=== PATIENT | female | born 1975 | race Caucasian/White ===

== ENCOUNTER → 2020-10-28 08:47 | Outpatient (BNVA) | payer OTHER, SELFPAY | PROVIDERS: PCP Internal Medicine; Visit Provider Internal Medicine Endocrinology, Diabetes & Metabolism ==

== ENCOUNTER 2020-11-06 10:07 | Outpatient (REF) | payer OTHER, SELFPAY ==
[2020-11-06 10:57] LABS: Estimated Average Glucose 126 mg/dL
[2020-11-06 11:06] LABS: Cholesterol 162 mg/dL; Glucose Fasting 101 mg/dL (60-99); HDL Cholesterol 39 mg/dL; LDL Cholesterol Calculated 102 mg/dl; Triglycerides 108 mg/dL
[2020-11-06 11:07] LABS: Creatinine Urine 94.43 mg/dL; Microalbum/Creatinine Ratio Ur 11.6 ug/mg cr
[2020-11-06 11:29] LABS: Free T4 (Free Thyroxine) 0.87 ng/dL (0.71-1.85); Thyroid Stimulating Hormone 2.11 uIU/mL (0.32-4.0); Vitamin D 25-OH Total 36.9 ng/mL (>30)
[2020-11-07 04:37] LABS: LDL Cholesterol Direct 108 mg/dL (<100); Triiodothyronine T3 Total 118 ng/dL (76-181)
== END 2020-11-06 10:08 | disposition home or self-care (01) ==
LOC: HO.LAB 10:07
PROVIDERS: PCP Internal Medicine; Visit Provider Internal Medicine Endocrinology, Diabetes & Metabolism
DX: E05.00 Thyrotoxicosis with diffuse goiter without thyrotoxic crisis or storm (principal); R73.03 Prediabetes; E55.9 Vitamin D deficiency, unspecified
CPT/HCPCS: 36415; 80061; 82043; 82306; 82947; 83036; 83721; 84439; 84443; 84480

== ENCOUNTER → 2020-12-02 09:57 | Outpatient (BNVA) | payer OTHER, SELFPAY | PROVIDERS: PCP Internal Medicine; Visit Provider Dietitian, Registered ==

== ENCOUNTER 2021-01-06 10:00 | Outpatient (REF) | payer OTHER, SELFPAY ==
--- NOTE | ~2021-01-06 | MM_ITS ---
EXAMINATION: MM SCREENING DIGITAL BREAST TOMOSYNTHESIS, BILATERAL CLINICAL INFORMATION: Screening. Asymptomatic. The lifetime risk of breast cancer based on the Tyrer-Cuzick Model is 9%. COMPARISON: Mammography: 10/18/2019, 10/12/2018, 09/15/2017 TECHNIQUE: Digital breast tomosynthesis is performed in both the craniocaudal and mediolateral oblique views along with computer-aided detection (CAD). Synthesized 2D images are generated from the tomosynthesis. FINDINGS: There are scattered areas of fibroglandular density (ACR BI-RADS breast composition Category b). There are no significant masses, abnormal calcifications, or other abnormalities. Parenchymal pattern is similar to prior exams. MM/MM tomosynthesis screening BI IMPRESSION: No mammographic evidence of malignancy. ASSESSMENT: BI-RADS 1: Negative RECOMMENDATION: Routine annual mammography screening. This patient's information was entered into a reminder system with a target due date for their next mammogram.
== END 2021-01-06 10:01 | disposition home or self-care (01) ==
LOC: HO.MAMMO 10:00
PROVIDERS: PCP Internal Medicine; Visit Provider Internal Medicine
DX: Z12.31 Encounter for screening mammogram for malignant neoplasm of breast (principal); R73.03 Prediabetes; Z68.38 Body mass index [BMI] 38.0-38.9, adult; Z71.3 Dietary counseling and surveillance
CPT/HCPCS: 77063; 77067; 97803

== ENCOUNTER → 2021-02-03 09:32 | Outpatient (BNVA) | payer OTHER, SELFPAY | PROVIDERS: PCP Internal Medicine; Visit Provider Dietitian, Registered | DX: R73.03 Prediabetes (principal) | CPT/HCPCS: 97803 ==

== ENCOUNTER → 2021-05-15 12:21 | Outpatient (BNVA) | payer OTHER, SELFPAY | PROVIDERS: PCP Internal Medicine; Visit Provider Dietitian, Registered | DX: R73.03 Prediabetes (principal) | CPT/HCPCS: 97803 ==

== ENCOUNTER → 2021-08-14 12:20 | Outpatient (BNVA) | payer OTHER, SELFPAY | PROVIDERS: PCP Internal Medicine; Visit Provider Dietitian, Registered | DX: R73.03 Prediabetes (principal) | CPT/HCPCS: 97803 ==

== ENCOUNTER 2022-01-12 12:50 | Outpatient (REF) | payer OTHER, SELFPAY ==
--- NOTE | ~2022-01-12 | MM_ITS ---
EXAMINATION: MM SCREENING DIGITAL BREAST TOMOSYNTHESIS, BILATERAL CLINICAL INFORMATION: Screening. Asymptomatic. The lifetime risk of breast cancer based on the Tyrer-Cuzick Model is 7%. COMPARISON: Mammography: 01/06/2021, 10/18/2019, 10/12/2018 TECHNIQUE: Digital breast tomosynthesis is performed in both the craniocaudal and mediolateral oblique views along with computer-aided detection (CAD). Synthesized 2D images are generated from the tomosynthesis. FINDINGS: There are scattered areas of fibroglandular density (ACR BI-RADS breast composition Category b). There are no significant masses, abnormal calcifications, or other abnormalities. Parenchymal pattern is similar to prior studies. There is no developing density or architectural abnormality. The axilla and skin contours are unremarkable. No significant changes. MM/MM tomosynthesis screening BI IMPRESSION: No mammographic evidence of malignancy. ASSESSMENT: BI-RADS 1: Negative RECOMMENDATION: Routine annual mammography screening. This patient's information was entered into a reminder system with a target due date for their next mammogram.
== END 2022-01-12 12:51 | disposition home or self-care (01) ==
LOC: HO.MAMMO 12:50
PROVIDERS: PCP Internal Medicine; Visit Provider Internal Medicine
DX: Z12.31 Encounter for screening mammogram for malignant neoplasm of breast (principal)
CPT/HCPCS: 77063; 77067

== ENCOUNTER 2023-02-17 12:35 | Outpatient (REF) | payer OTHER, SELFPAY ==
--- NOTE | ~2023-02-17 | MM_ITS ---
EXAMINATION: MM SCREENING DIGITAL BREAST TOMOSYNTHESIS, BILATERAL CLINICAL INFORMATION: Screening. Asymptomatic. The lifetime risk of breast cancer based on the Tyrer-Cuzick Model is 6%. COMPARISON: Mammography: 01/12/2022, 01/06/2021, 10/18/2019 TECHNIQUE: Digital breast tomosynthesis is performed in both the craniocaudal and mediolateral oblique views along with computer-aided detection (CAD). Synthesized 2D images are generated from the tomosynthesis. Additional left MLO view is provided. FINDINGS: There are scattered areas of fibroglandular density (ACR BI-RADS breast composition Category b). There are no significant masses, abnormal calcifications, or other abnormalities. No architectural abnormality or developing density or significant change from prior studies. The axilla are unremarkable. There are bilateral nipple piercings. MM/MM tomosynthesis screening BI IMPRESSION: No mammographic evidence of malignancy. ASSESSMENT: BI-RADS 1: Negative RECOMMENDATION: Routine annual mammography screening. This patient's information was entered into a reminder system with a target due date for their next mammogram.
== END 2023-02-17 12:36 | disposition home or self-care (01) ==
LOC: HO.MAMMO 12:35
PROVIDERS: Visit Provider Internal Medicine
DX: Z12.31 Encounter for screening mammogram for malignant neoplasm of breast (principal)
CPT/HCPCS: 77063; 77067

== ENCOUNTER 2024-02-24 10:51 | Outpatient (REF) | payer OTHER, SELFPAY | END 2024-02-24 10:52 | disposition home or self-care (01) | LOC: HO.MAMMO 10:51 | PROVIDERS: PCP Internal Medicine; Visit Provider Internal Medicine | DX: Z12.31 Encounter for screening mammogram for malignant neoplasm of breast (principal) | CPT/HCPCS: 77063; 77067 ==

== ENCOUNTER → 2024-02-24 11:00 | Outpatient (BNV) | payer OTHER, SELFPAY | PROVIDERS: PCP Internal Medicine; Visit Provider Radiology Diagnostic Radiology | DX: Z12.31 Encounter for screening mammogram for malignant neoplasm of breast (principal) | CPT/HCPCS: 77063; 77067 ==

== ENCOUNTER 2025-04-17 11:09 | Outpatient (REF) | payer OTHER, SELFPAY ==
--- OUTSIDE RECORDS SUMMARY | 2025-04-17 12:10 | XMS_ITS | Data Portability ---
Author Organization [facility] [id number] Address [address] [place] [address] Assessment No assessment recorded. Plan of Treatment Reminders Order Date Submit Date Provider Last Modified By Organization Details Last Modified Time Details Appointments None record ed. Lab None record ed. Referral None record ed. Procedures None record ed. Surgeries None record ed. Imaging None record ed. Medication Orders None record ed. Patient TargetsNo targets recorded. Patient InstructionsNo instructions recorded. Reason for Referral None Reported. Medical Equipment None Reported. Medications Name Sig Start Date Stop Date Status Note LastModified by Organization Details LastModified Time bupropion HCl SR 150 mg tablet,12 hr sustained-rele ase TAKE 1 TABLET BY MOUTH TWICE A DAY active Not Available Not Available No t Available tramadol 50 mg tablet TAKE 1 TABLET BY MOUTH EVERY 6 HOURS FOR SHOULDER/ BACK PAIN active Not Available Not Available No t Available methocarbamol 750 mg tablet TAKE 1 TABLET BY MOUTH 3 TIMES DAILY NEEDED (PAIN) FOR UP TO 10 DAYS. active Not Available Not Available No t Available ferrous sulfate 325 mg (65 mg iron) tablet TAKE 1 TABLET BY MOUTH TWICE A DAY active Not Available Not Available No t Available methimazole 5 mg tablet TAKE 1 TABLET BY MOUTH EVERY DAY active Not Available Not Available No t Available omeprazole 20 mg capsule,delaye d release TAKE 1 CAPSULE BY MOUTH EVERY DAY active Not Available Not Available No t Available hydroxyzine HCl 25 mg tablet TAKE 1 TABLET BY MOUTH TWICE A DAY active Not Available Not Available No t Available clotrimazole 1 % topical cream APPLY TO AFFECTED AREA TWICE A DAY active Not Available Not Available No t Available diazepam 5 mg tablet TAKE 1 TABLET BY MOUTH EVERY 8 HOURS NEEDED FOR SPASMS active Not Available Not Available No t Available escitalopram 10 mg tablet TAKE 1 TABLET BY MOUTH EVERY DAY active Not Available Not Available No t Available escitalopram 5 mg tablet TAKE 1 TABLET BY MOUTH EVERY DAY active Not Available Not Available No t Available Vitamin D3 50 mcg (2,000 unit) capsule TAKE 1 CAPSULE BY MOUTH EVERY DAY active Not Available Not Available No t Available EC-Naproxen 500 mg tablet,delayed release TAKE 1 TABLET BY MOUTH TWICE A DAY active Not Available Not Available No t Available Vitals None Recorded Social History None recorded. Functional Status None recorded. Mental Status None recorded. Family History Nothing Reported. Medical History No medical history recorded. Gynecological HistoryNo gynecological history recorded. Obstetrics History GPAL:G 0 P 0 0 0 0 Past Encounters Encounter ID Performer Location Encounter Start Date Encounter Closed Date Diagnosis/Indication Diagnosis SNOMED-CT Code Diagnosis ICD10 Code Diagnosis Note [id number] [place] [address] 08/03/2021 09:50:10 08/03/2021 12:25:15 [id number] [address] [place] [address] 09/21/2020 13:24:10 09/21/2020 14:38:10 [id number] [address] [place] [address] 09/05/2019 10:58:51 09/05/2019 12:26:35 Health Concerns Section Related Observation LastModified by Organization Detai ls LastModified Time None Recorded Concern Status LastModified by Organization Details LastModified Time None Recorded Advance Directives Directive None Recorded Payers Insurance Date Sequence Insurance Name Policy Number Policy Silvestre Covered Member ID Silvestre Member ID Guarantor Name 04/25/2023 1 [facility] - [facility] (MEDICAID REPLACEMENT - HMO) RIKI Meza [id number] Safia Meza OBGyn Episode No OBEpisode recorded.
--- OUTSIDE RECORDS SUMMARY | 2025-04-17 12:10 | XMS_ITS ---
Author Name [facility] Organization Unknown Care Team Organization Name Specialty Phone Email Start Date End Da te [facility] 08/03/2022 05/14/20 24
--- OUTSIDE RECORDS SUMMARY | 2025-04-17 12:10 | XMS_ITS | Clinical Summary ---
Author Organization [facility] [address] [place] [address] [place] [phone] Phone Care Team Providers Care Graduate Engineer Name Role Phone Francisco Sandoval MD Primary Care Provider [phone] Allergies Active Allergy Reactions Criticality Noted Date Comments Other 04/25/2023 Seasonal Propofol 02/15/2024 Other Reaction(s): Hives/Urticaria Medications blood sugar diagnostic (FreeStyle Lite Strips) test strip 1 Strip by In Vitro route Once. Once daily 02/17/20 24 Active blood glucose control high,low (FreeStyle Control) solution 1 Each by In Vitro route daily. 02/15/20 24 Active triamcinolone (KENALOG) 0.5 % cream Apply to affected area TID for 7 days then as needed 02/15/20 24 Active ferrous sulfate 325 mg (65 mg elemental iron) tablet Take 1 Tablet by mouth 2 times daily. 10/21/19 24 Active escitalopram (LEXAPRO) 10 mg tablet Take 1 Tablet by mouth daily. Active freestyle (FreeStyle Lancets) 28 gauge lancets Use one lancet to check blood sugar once a day 100 each 1 01/10/20 25 Active omeprazole (PriLOSEC) [address] capsule TAKE 1 CAPSULE BY MOUTH 1 TIME EACH DAY. 90 capsule 01/29/20 25 Active cholecalcifero l (Vitamin D3) 50 mcg (2,000 unit) capsule Take 1 capsule (2,000 Units total) by mouth 1 (one) time each day. 90 capsule 02/09/20 25 Active metFORMIN XR (GLUCOPHAGE-XR ) 500 mg 24 hr tablet TAKE 1 TABLET BY MOUTH EVERY DAY WITH BREAKFAST 90 tablet 1 02/12/20 25 Active diclofenac (VOLTAREN) 1 % topical gel Apply 4 g topically 2 (two) times a day. 100 g 2 04/03/20 25 Active celecoxib (CeleBREX) 200 mg capsule Take 1 capsule (200 mg total) by mouth 1 (one) time each day. 30 capsule 2 04/03/20 25 025 Active cyclobenzaprin e (FLEXERIL) 10 mg tablet TAKE 1/2-1 TABLET 2 TIMES DAILY NEEDED FOR MUSCLE SPASMS. DROWSINESS, DO NOT DRIVE 60 tablet 04/15/20 25 Active naproxen (EC NAPROSYN) 500 mg EC tablet Take 1 tablet (500 mg total) by mouth 2 (two) times a day. 025 Discontinued(Al ternate therapy) cyclobenzaprin e (FLEXERIL) 10 mg tablet TAKE 1/2 TO 1 TABLET BY MOUTH 2 TIMES DAILY NEEDED FOR MUSCLE SPASMS. MEDICATION MAY CAUSE DROWSINESS, DO NOT DRIVE/OPERATE MACHINERY WHILE TAKING 60 tablet 03/07/20 25 025 Discontinued ibuprofen (ADVIL,MOTRIN) 800 mg tablet Take 1 tablet (800 mg total) by mouth every 6 (six) hours if needed for mild pain. 025 Discontinued(Al ternate therapy) Active Problems Problem Noted Date Diagnosed Date GUERRERO on CPAP 02/15/2024 Type 2 diabetes mellitus wit hout complication, without long-term current use of insulin ([facility] V24, [facility] V28) 02/15/2024 Gastroesophageal reflux disease without esophagi tis 08/15/2023 Class 2 severe obesity due t o excess calories with serious comorbidity and body mass index (BMI) of 36.0 to 36.9 in adult ([facility] V24, [facility] V28) 10/15/2022 LGSIL on Pap smear of cervix 04/06/2022 Overview (06/25/2024): 2021 Colpo: benign Repeat pap 2022 Hyperthyroidism 09/29/2021 Plantar fasciitis 01/06/2021 Obesity (BMI 30-39.9) 08/11/2017 Anxiety and depression 06/17/2017 Overview (06/25/2024): Seeing therapist Andrew Nicole at [facility] Carpal tunnel syndrome 06/17/2017 Overview (06/25/2024): Left wrist. Seeing orthopedics. 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 Overview (06/25/2024): Seeing Dr Mcduffie(endocrine) [facility] Vitamin D deficiency 06/17/2017 Encounters Date Type Department Care Team Description 04/03/2025 10:00 AM EDT Consult Orthopedic Surgery - [place] [address] [place] [address] [address] [place] [phone] April Simental PA Sprain of anterior cruciate ligament of right knee, sequela (Primary Dx); Sprain of medial collateral ligament of right knee, sequela; Primary osteoarthritis of right knee; Chronic pain of right knee; Chronic patellofemoral pain of right knee 02/20/2025 9:15 AM EDT Office Visit Obst[facility] [address] [place] [phone] Zulema Smith CNM Screen for STD (sexually transmitted disease) (Primary Dx) from Last 3 Months Immunizations Name Administration Dates Next Due Influenza Quadravalent, MDCK , 0.5ml, preservative free (Flucelvax) 6mo and older 06/14/2022 Influenza Quadravalent, MDCK , 0.5ml, with preservative (Flucelvax) 6mo and older 09/28/2017 Tdap Tetanus diptheria acell ular pertussis (Boostrix; Adacel) 7yo and older 09/28/2017 Surgical History Surgery Date Site/Laterality Comments SECTION 2006 PROCEDURE: HISTORICAL CHOLECYSTECTOMY 2007 PROCEDURE: HISTORICAL CHOLECYSTECTOMY OTHER SURGICAL HISTORY 2014 PROCEDURE: NM HEMORRHOIDECTOMY INT & XTRNL 2/> [facility]OT [facility]ERY 06/09/2018 Right PROCEDURE: HISTORICAL FOOT SURGERY; COMMENT: right instep plantar fasciotomy and left plantar cortisone injection Mg Fernandes DPM Medical History Medical History Date Comments 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 Seeing orthopedics. Chronic pain of right heel 06/17/2017 DX:Ch ronic pain of right heel; COMMENT: Seeing foot worker at [address] [place] [address] Gestational diabetes 06/17/2017 DX:Gestatio nal diabetes H/O gestational diabetes azar litus, not currently 06/17/2017 DX:H/O gestational diabetes mellitus, not currently Covid-19 01/05/2021 DX:COVID-19; COM MENT: Pt dx with Covid at [facility] 09/20/20 COVID-19 virus infection 09/09/2021 DX:COVI D-19 virus infection Family History Medical History Relation Name Comments Other: truama Brother motorcycle acc ident Diabetes Father No Known Problems Maternal Grandfather Alzheimer's disease Maternal Grandmother Hypertension Maternal Grandmother Depression Mother Diabetes Mother Multiple sclerosis Sister 1 09/27 siste r Depression Sister 2 Diabetes Sister 2 Relation Name Status Comments Brother Father Alive Maternal Grandfather Alive Maternal Grandmother Alive Mother Paternal Grandfather Paternal Grandmother Sister 1 Alive Sister 2 Alive Social History Tobacco Use Types Packs/Day Years Used Date Smoking Tobacco: Former Cigarettes Q uit: 10/27/2016 Smokeless Tobacco: Never Tobacco Cessation:Counseling Given: Not Answered Alcohol Use Standard Drinks/Week Comments Yes 0 (1 standard drink = 0.6 oz pur e alcohol) Comments No Sex and Gender Information Value Date Recorded Sex Assigned at Female 10/07/2024 10:10 PM EST Legal Sex Female 5:02 AM EST Gender Identity Female 10/07/2024 10:10 PM EST Sexual Orientation Straight 10/07/2024 10 :10 PM EST Obstetrics History Para Term AB IAB SAB Ectopic Multiple Livin g Live Births 11 7 4 3 4 3 1 Date Outcome GA Total Labor Labor/2nd/3rd Weight Sex Type Anes PTL Chloe A1 A5 Name Clin IAB IAB IAB SAB 09/1993 Term F Vag-S pont 01/1995 Term M Vag-S pont 11/2000 Term M Vag-S pont 08/2006 27w0 d M CS-LT ranv Comments:twins 08/2006 27w0 d M SAB Comments:twins 07/2008 28w0 d M Vag-S pont 03/2016 Term F Vag-S pont Last Filed Vital Signs Vital Sign Reading Time Taken Comments Blood Pressure 120/80 02/20/2025 9:20 AM EDT Pulse 81 02/20/2025 9:20 AM EDT Temperature 36.9 C (98.5 F) 07/31/2024 1:32 PM EST Respiratory Rate 18 02/20/2025 9:20 AM EDT Oxygen Saturation 98% 07/31/2024 1:32 PM EST Inhaled Oxygen Concentration - - Weight 90.6 kg (199 lb 12.8 oz) 02/20/2025 9:20 AM EDT Height 154.9 cm (5' 1 ) 02/20/2025 9:20 AM EDT Body Mass Index 37.75 02/20/2025 9:20 AM EDT Plan of Treatment Upcoming Encounters Date Type Department Care Team (Late st Contact Info) Description 04/24/2025 9:45 AM EDT Office Visit Internal Medicine - [address] [phone] Francisco Sandoval MD [address] [place] [phone] 04/25/2025 2:00 PM EDT Evaluation Outpatient Rehabilitation [address] [phone] Nabil Jalloh, PT Health Maintenance Due Date Last Done Comments Breast Cancer Screening 1976 Hepatitis B Vaccines (1 of 3 - 19+ 3-dose series) 1995 Pneumococcal Vaccine: Pediatrics (0 to 5 Years) and At-Risk Patients (6 to 49 Years) (1 of 2 - PCV) 1995 Colorectal Cancer Screening: Colonoscopy 09/04/2022 Social Influencers of Health Screening 09/04/2022 COVID-19 Vaccine ( season) 2024 Diabetes: Annual Foot Exam 02/14/2025 02/15/2024 Diabetes: Blood Sugar Control Test (HGBA1C) 04/04/2025 10/05/2024, 05/18/2024, 05/18/2024, Additional history exists Influenza Vaccine (#1) 2025 06/14/2022, 2017 Diabetes: Annual Urine Albumin-Creatinine Ratio (uACR) 10/05/2025 10/05/2024, 02/15/2024 Diabetes: Annual GFR (Glomerular Filtration Rate) 10/05/2025 10/05/2024, 02/15/2024, 02/15/2024 Diabetes: Annual Retina Eye Exam 10/29/2025 10/29/2024, 05/18/2024 Cervical Cancer Screening: HPV 01/27/2027 01/27/2022 DTaP,Tdap,and Td Vaccines (2 - Td or Tdap) 09/28/2027 09/28/2017 Cholesterol Screening (Lipid Panel) 10/05/2029 10/05/2024, 02/15/2024, 02/15/2024 Depression Screening Completed 02/20/2025, 02/15/20 HIV Screening Completed 02/20/2025, 12/29/2023 Hepatitis C Screening Completed 02/20/2025 HIB Vaccines Aged Out No longer eligi ble based on patient's age to complete this topic HPV Vaccines Aged Out No longer eligi ble based on patient's age to complete this topic Hepatitis A Vaccines Aged Out No long er eligible based on patient's age to complete this topic IPV Vaccines Aged Out No longer eligi ble based on patient's age to complete this topic MMR Vaccines Aged Out No longer eligi ble based on patient's age to complete this topic Meningococcal ACWY Vaccine Aged Out N o longer eligible based on patient's age to complete this topic Meningococcal B Vaccine Aged Out No l onger eligible based on patient's age to complete this topic RSV Immunization Patients Under 20 months Aged Out No longer eligible based on patient's age to complete this topic Varicella Vaccines Aged Out No longer eligible based on patient's age to complete this topic Procedures Procedure Name Priority Date/Time Associated Diagnosis Comments XR KNEE 4+ VIEWS RIGHT Routine 10:16 AM EDT Chronic pain of right knee TREPONEMA PALLIDUM ANTIBODY WITH REFLEX TO RPR AND PARTICLE AGGLUTINATION Routine 02/20/2025 9:44 AM EDT Screen for STD (sexually transmitted disease) HIV 1, 2 ANTIBODY, P24 ANTIGEN WITH REFLEX TO DIFFERENTIATION Routine 02/20/2025 9:44 AM EDT Screen for STD (sexually transmitted disease) HEPATITIS C ANTIBODY Routine 02/20/2025 9:44 AM EDT Screen for STD (sexually transmitted disease) TRICHOMONAS VAGINALIS ANTIGEN Routine 02/20/2025 9:41 AM EDT Screen for STD (sexually transmitted disease) CHLAMYDIA TRACHOMATIS AND NEISSERIA GONORRHOEAE PCR Routine 02/20/2025 9:41 AM EDT Screen for STD (sexually transmitted disease) EXTERNAL DIABETIC RETINA EYE EXAM 10/29/2024 MICROALBUMIN CREATININE URINE RATIO Routine 10/05/2024 1:48 PM EST Type 2 diabetes mellitus without complication, without long-term current use of insulin ([facility] V24, [facility] V28) COMPREHENSIVE METABOLIC PANEL Routine 10/05/2024 1:48 PM EST Type 2 diabetes mellitus without complication, without long-term current use of insulin (CMS/HCC V24, CMS/HCC V28) HEMOGLOBIN A1C Routine 10/05/2024 1:48 PM EST Type 2 diabetes mellitus without complication, without long-term current use of insulin (CMS/HCC V24, CMS/HCC V28) LIPID PANEL WITH REFLEX TO DIRECT LDL Routine 10/05/2024 1:48 PM EST Type 2 diabetes mellitus without complication, without long-term current use of insulin (CMS/[facility] V24, CMS/HCC V28) HM DEPRESSION SCREENING Routine 02/15/2024 DIABETES FOOT EXAM Routine 02/15/2024 HPV Routine 01/27/2022 from Last 3 Months or Most Recently Relevant to Health Maintenance Results * XR Knee 4+ Views Right (04/03/2025 10:16 AM EDT) Anatomical Region Laterality Modality Lower Extremities, Knee Right Computed Radiography Narrative 04/03/2025 10:23 AM EDT Date of Visit: 04/03/2025 Reason for visit: Right knee pain Views: Lateral, [place], [place], and AP weightbearing right knee Comparison: none Findings: Joint space of the medial compartments with moderate narrowing. Joint space of the lateral compartments maintained. Very early periarticular osteophyte formation noted in medial compartment and with peaking of the tibial spines Patella sits centered without significant tilt or translation. No fractures. No bony lesions identified. Impression: Moderate medial compartment degenerative changes noted as above No acute osseous pathology noted Right knee Read by: April Simental PA-C April CORNELL IMG XR PROCEDURES Final Resul t * Hepatitis C antibody (02/20/2025 9:44 AM EDT) Pathologist [facility] Hepatitis C Antibody Negative Negative LAB CHEMISTRY METHOD 02/20/2025 2:12 PM EDT [facility] Blood Venous blood specimen / Unknown Venipuncture / Unknown 02/20/2025 9:44 AM EDT 02/20/2025 9:44 AM EDT Zulema RAYMUNDO LAB BLOOD ORDERABLES Final R esult [facility] [address] [place] [address], [place] [phone] * HIV 1,2 antibody, p24 antigen with reflex to differentiation (02/20/2025 9:44 AM EDT) [facility] HIV Combo AB/AG Negative Negative LAB CHEMISTRY METHOD 02/20/2025 2:12 PM EDT [facility] Blood Venous blood specimen / Unknown Venipuncture / Unknown 02/20/2025 9:44 AM EDT 02/20/2025 9:44 AM EDT Narrative [facility] - 02/20/2025 2:12 PM EDT This assay is a 4th generation assay allowing for earlier detection of HIV infection by detecting the presence of the HIV-1 p24 antigen as well as the traditional antibodies to HIV type 1 (including group O) and type 2. Use of a 4th generation assay is the current CDC recommendation for HIV screening. Zulema Smith [facility] LAB BLOOD ORDERABLES Final R esult Performing Organization Address City/[facility]/ZIP Co de Phone Number [facility] [address] [place] [address], [place] [phone] * Treponema pallidum antibody with reflex to RPR and particle agglutination (02/20/2025 9:44 AM EDT) T. Pallidum Antibodies Negative Negative LAB CHEMISTRY METHOD 02/20/2025 2:44 PM EDT [facility] Blood Venous blood specimen / Unknown Venipuncture / Unknown 02/20/2025 9:44 AM EDT 02/20/2025 9:44 AM EDT Zulema Luis [facility] LAB BLOOD ORDERABLES Final R esult [facility] [address] [place] [address], [place] [phone] * Trichomonas vaginalis antigen (02/20/2025 9:41 AM EDT) Trichomonas vaginalis Negative Negative 02/20/2025 7:26 PM EDT [facility] Swab Vaginal structure / Unknown Non-blood Collection / Unknown 02/20/2025 9:41 AM EDT 02/20/2025 9:41 AM EDT Zulema RAYMUNDO LAB MICROBIOLOGY - GENERAL O RDERABLES Final Result Performing Organization Address [facility]/ZIP Co de Phone Number [facility] [address] [place] [address], [place] [phone] * Chlamydia trachomatis and Neisseria gonorrhoeae molecular study (02/20/2025 9:41 AM EDT) Pathologist [facility] Neisseria gonorrhoeae PCR Negative Negative LAB MOLECULAR DIAGNOSTICS METHOD 02/21/2025 11:55 AM EDT [facility] Chlamydia trachomatis PCR Negative Negative LAB MOLECULAR DIAGNOSTICS METHOD 02/21/2025 11:55 AM EDT [facility] Swab Vaginal structure / Unknown Non-blood Collection / Unknown 02/20/2025 9:41 AM EDT 02/20/2025 9:41 AM EDT Zulema RAYMUNDO LAB MICROBIOLOGY - GENERAL O RDERABLES Final Result [facility] [address] [place] [address], [place] [phone] * External Diabetic Retina Eye Exam Report (10/29/2024) Anatomical Region Laterality Modality Ultrasound Provider [facility] US PROCEDURES Final Result * (ABNORMAL) Lipid panel with reflex to direct LDL (10/05/2024 1:48 PM EST) Cholesterol 164 0 - 200 mg/dL LAB CHEMISTRY METHOD 10/05/2024 3:42 PM EST [facility] Triglycerides 126 0 - 150 mg/dL LAB CHEMISTRY METHOD 10/05/2024 3:42 PM EST [facility] HDL 39(L) >=40 mg/dL LAB CHEMISTRY METHOD 10/05/2024 3:42 PM EST [facility] LDL Calculated 100 0 - 100 mg/dL LAB CHEMISTRY METHOD 10/05/2024 3:42 PM EST [facility] VLDL Cholesterol Guru 25.2 mg/dL LAB CHEMISTRY METHOD 10/05/2024 3:42 PM EST [facility] Non HDL Chol. (LDL+VLDL) 125 <145 mg/dL LAB CHEMISTRY METHOD 10/05/2024 3:42 PM EST [facility] Chol/HDL Ratio 4.2 0.0 - 4.4 LAB CHEMISTRY METHOD 10/05/2024 3:42 PM EST [facility] Blood Venous blood specimen / Unknown Venipuncture / Unknown 10/05/2024 1:48 PM EST 10/05/2024 1:48 PM EST Franicsco Sandoval MD LAB BLOOD ORDERABLES Final Res ult Performing Organization Address [facility]/ZIP Co de Phone Number [facility] [address] [place] [address], [place] [phone] * Microalbumin creatinine urine ratio (10/05/2024 1:48 PM EST) Creatinine, Urine 84.0 mg/dL LAB CHEMISTRY METHOD 10/05/2024 3:50 PM [facility] Microalb, Ur 18.7 0.0 - 29.0 mg/L LAB CHEMISTRY METHOD 10/05/2024 3:50 PM EST [facility] Microalb/Creat Ratio 22 <30 mg/g creat LAB CHEMISTRY METHOD 10/05/2024 3:50 PM EST [facility] Urine Urine specimen obtained by clean catch procedure / Unknown Non-blood Collection / Unknown 10/05/2024 1:48 PM EST 10/05/2024 1:48 PM EST us Francisco Sandoval MD LAB URINE ORDERABLES Final Res ult Performing Organization Address City[facility]/ZIP Co de Phone Number [facility] [address] [place] [address], [place] [phone] * (ABNORMAL) Hemoglobin A1c (10/05/2024 1:48 PM EST) [facility] Hemoglobin A1C 6.7(H) <6.5 % LAB CHEMISTRY METHOD 10/05/2024 6:42 PM EST [facility] Mean Bld Glu Estim. 146 mg/dL LAB CHEMISTRY METHOD 10/05/2024 6:42 PM [facility] Blood Venous blood specimen / Unknown Venipuncture / Unknown 10/05/2024 1:48 PM EST 10/05/2024 1:48 PM EST Francisco Sandoval MD LAB BLOOD ORDERABLES Final Res ult [facility] [address] [place] [address], * (ABNORMAL) Comprehensive metabolic panel (10/05/2024 1:48 PM EST) [facility] Sodium 135 133 - 145 mmol/L LAB CHEMISTRY METHOD 10/05/2024 3:42 PM [facility] Potassium 3.9 3.5 - 5.5 mmol/L LAB CHEMISTRY METHOD 10/05/2024 3:42 PM [facility] Chloride 105 96 - 110 mmol/L LAB CHEMISTRY METHOD 10/05/2024 3:42 PM [facility] CO2 27 21 - 32 mmol/L LAB CHEMISTRY METHOD 10/05/2024 3:42 PM [facility] Anion Gap 3 3 - 11 LAB CHEMISTRY METHOD 10/05/2024 3:42 PM [facility] Glucose 124(H) 70 - 100 mg/dL LAB CHEMISTRY METHOD 10/05/2024 3:42 PM [facility] BUN 9 5 - 25 mg/dL LAB CHEMISTRY METHOD 10/05/2024 3:42 PM [facility] Creatinine 0.74 0.50 - 1.10 mg/dL LAB CHEMISTRY METHOD 10/05/2024 3:42 PM [facility] eGFR 101 >=60 mL/min/1. 73m2 LAB CHEMISTRY METHOD 10/05/2024 3:42 PM [facility] Comment:Calculation based on the Chronic Kidney Disease Epidemiology Collaboration (CKD-EPI) equation refit without adjustment for race. BUN/Creatinine Ratio 12.2 LAB CHEMISTRY METHOD 10/05/2024 3:42 PM [facility] Calcium 8.8 8.5 - 10.5 mg/dL LAB CHEMISTRY METHOD 10/05/2024 3:42 PM [facility] AST (SGOT) 19 10 - 42 unit/L LAB CHEMISTRY METHOD 10/05/2024 3:42 PM [facility] ALT (SGPT) 25 10 - 60 unit/L LAB CHEMISTRY METHOD 10/05/2024 3:42 PM [facility] Alkaline Phosphatase 137(H) 42 - 121 unit/L LAB CHEMISTRY METHOD 10/05/2024 3:42 PM [facility] Total Protein 7.1 6.0 - 8.0 g/dL LAB CHEMISTRY METHOD 10/05/2024 3:42 PM [facility] Albumin 3.6 3.2 - 5.0 g/dL LAB CHEMISTRY METHOD 10/05/2024 3:42 PM [facility] Total Bilirubin 0.5 0.0 - 1.4 mg/dL LAB CHEMISTRY METHOD 10/05/2024 3:42 PM [facility] Blood Venous blood specimen / Unknown Venipuncture / Unknown 10/05/2024 1:48 PM EST 10/05/2024 1:48 PM EST us Francisco Sandoval MD LAB BLOOD ORDERABLES Final Res ult [facility] [address] [place] [address], * Depression Screening (02/15/2024) Pathologist [facility] Depression Screening Abstracted Historical Provider HEALTH MAINTENANCE Final Result * Diabetes Foot Exam (02/15/2024) Pathologist [facility] Diabetes: Annual Foot Exam Abstracted Historical Provider HEALTH MAINTENANCE Final Result * Cervical Cancer Screening: HPV (01/27/2022) [facility] Cervical Cancer Screening: HPV Negative, Abstracted Historical Provider HEALTH MAINTENANCE Final Result from Last 3 Months or Most Recently Relevant to Health Maintenance Insurance [facility] [place] [phone] Care Teams Graduate Engineer Relationship Specialty Start Date End Date Francisco Sandoval MD [address] [place] [id number] PCP - General Internal Medicine 09/24/24
== END 2025-04-17 11:10 | disposition home or self-care (01) ==
LOC: HO.MAMMO 11:09
PROVIDERS: PCP Internal Medicine; Visit Provider Internal Medicine
DX: Z12.31 Encounter for screening mammogram for malignant neoplasm of breast (principal)
CPT/HCPCS: 77063; 77067

== ENCOUNTER → 2025-04-17 11:15 | Outpatient (BNV) | payer OTHER, SELFPAY | PROVIDERS: PCP Internal Medicine; Visit Provider Radiology Body Imaging | DX: Z12.31 Encounter for screening mammogram for malignant neoplasm of breast (principal) | CPT/HCPCS: 77063; 77067 ==